=== PATIENT | male | born 1955 | race Caucasian/White ===

== ENCOUNTER 2022-12-13 07:48 | Emergency (ER) | payer OTHER, BC ==
[~2022-12-13] VITALS: Ht 180.3 cm; Wt 122.5 kg
[2022-12-13] MEDS ORDERED: TRAMADOL HCL50 MG PO (08:57)
[2022-12-13 10:20] VITALS: BP 119/73
--- NOTE | 2022-12-13 18:09 | EKG ---
[facility] [address] [facility] [place], [place] [address] Signed Sinus bradycardia with 1st degree AV block Otherwise normal ECG No previous ECGs available Confirmed by DILEEP OCHOA MD ([id number] on 12/13/2022 6:09:01 PM Electronically Signed By: DILEEP OCHOA MD 12/13/22 1809 PATIENT NAME: CHAZ HILL Electrocardiogram DATE OF : 59 PHYSICIAN: DILEEP OCHOA MD REPORT #: [id number] REPORT IS CONFIDENTIAL AND NOT TO BE RELEASED WITHOUT AUTHORIZATION
== END 2022-12-13 10:20 | disposition home or self-care (01) ==
LOC: ED 07:48
DX: S83.91XA Sprain of unspecified site of right knee, initial encounter (principal); S09.90XA Unspecified injury of head, initial encounter; W18.2XXA Fall in (into) shower or empty bathtub, initial encounter; I48.0 Paroxysmal atrial fibrillation; I10 Essential (primary) hypertension; E11.9 Type 2 diabetes mellitus without complications; Z79.01 Long term (current) use of anticoagulants
CPT/HCPCS: 36415; 70450; 71045; 72170; 73560; 80053; 85025; 86850; 86900; 86901; 93005; 93010; 96374; 96375; 99284-25; G0480; J2270; J2405